=== PATIENT | male | born 1955 | race Caucasian/White ===

== ENCOUNTER 2016-08-06 20:53 | Inpatient (IN) | payer OTHER ==
[~2016-08-06] VITALS: Ht 165.1 cm; Wt 87.5 kg
[2016-08-06] MEDS ORDERED: ONDANSETRON 4 MG INJ IV STA (23:15)
[2016-08-06] MEDS ORDERED: morphine 4 MG/ML VIAL IV STA (23:15)
[2016-08-06] MEDS ORDERED: hydrALAzine 20 MG INJ IV ONE (23:30)
[2016-08-06 23:34] LABS: ADD SCAN DIFF NO
[2016-08-06 23:36] LABS: BASOPHIL # 0.1 10^3/ul (0.0-0.1); BASOPHILS % 0.7 % (0.0-2.0); EOSINOPHILS # 0.8 10^3/ul (0.0-0.5); EOSINOPHILS % 6.9 % (0.0-7.0); HEMATOCRIT 41.1 % (42.0-52.0); HEMOGLOBIN 13.7 g/dl (14.0-18.0); LYMPHOCYTES # 4.5 10^3/ul (0.8-2.9); LYMPHOCYTES % 40.1 % (15.0-51.0); MEAN CORPUSCULAR HEMOGLOBIN 29.3 pg (29.0-33.0); MEAN CORPUSCULAR HGB CONC 33.3 g/dl (32.0-37.0); MEAN PLATELET VOLUME 9.3 fl (7.4-10.4); MONOCYTE # 0.8 10^3/ul (0.3-0.9); MONOCYTES % 7.6 % (0.0-11.0); NEUTROPHIL # 4.9 10^3/ul (1.6-7.5); NEUTROPHILS % 44.3 % (39.0-77.0); PLATELET COUNT 285 10^3/UL (140-415); RED BLOOD COUNT 4.67 10^6/ul (4.70-6.10); RED CELL DISTRIBUTION WIDTH 13.6 % (11.5-14.5); WHITE BLOOD COUNT 11.1 10^3/ul (4.8-10.8)
[2016-08-06 23:54] LABS: INR 0.92; PROTIME 12.4 Sec (12.2-14.2)
[2016-08-06 23:56] LABS: ANION GAP 15 (8-16); BLOOD UREA NITROGEN 15 mg/dl (7-20); CALCIUM 9.4 mg/dl (8.4-10.2); CARBON DIOXIDE 26 mmol/L (21-31); CHLORIDE 105 mmol/L (97-110); CREATININE 0.84 mg/dl (0.61-1.24); GLUCOSE 89 mg/dl (70-220); POTASSIUM 4.7 mmol/L (3.5-5.1); SODIUM 141 mmol/L (135-144)
[2016-08-07 00:14] LABS: TROPONIN-I < 0.012 ng/ml (0.00-0.12)
--- NOTE | 2016-08-07 00:17 | RADRPT ---
PROCEDURE: CT Head without. CLINICAL INDICATION: Headache. TECHNIQUE: The study was performed utilizing a multi-slice, multidetector CT scanner. Direct spira l 1 mm axial sections were obtained through the head without the use of intravenous contrast materia l. 1 or more of the following dose reduction techniques were utilized: Automated exposure control, adjustment of the mA and/or kV according to patient's size, iterative reconstruction technique. Co maxwell and sagittal reformations were obtained. The images were reviewed on a PACS workstation. RADIATION DOSE: CTDIvol: 45.0 mGyDLP: 720.2 mGy-cm COMPARISON: No prior studies are available for comparison. FINDINGS: There is no intracranial hemorrhage, extra-axial fluid collection, mass lesion, midline shift or hyd rocephalus. The ventricles, sulci and cisterns are within normal limits. The white matter is unrem arkable. The ocasio-white matter differentiation is preserved. The basal cisterns are patent. The m idline structures are intact. The orbits, calvarium and extracranial soft tissues are normal in mariano earance. The visualized paranasal sinuses, mastoid air cells and middle ear cavities are normally ae rated. IMPRESSION: 1. No acute intracranial abnormality. No intracranial hemorrhage, extra-axial fluid collection, ma ss lesion or hydrocephalous. RPTAT: HGAS .Kyree Rey MD, Date Time Electronically viewed and signed by .Kyree Rey MD, on 08/07/2016 00:16 .S/
--- NOTE | 2016-08-07 00:36 | RADRPT ---
PROCEDURE: XR Chest. CLINICAL INDICATION: Hypertension. TECHNIQUE: Single frontal chest x-ray. COMPARISON: None. FINDINGS: Heart is enlarged.. There is no congestive heart failure.. No focal infiltrate is seen. There is n o pleural effusion. There is no pneumothorax. The osseous structures are unremarkable. IMPRESSION: Cardiomegaly. No CHF or infiltrate. RPTAT: HMVK .Maurisio Piedra MD, MD Date Time Electronically viewed and signed by .Mauirsio Piedra MD, on 08/07/2016 00:36 .K/
--- NOTE | 2016-08-07 01:09 | ERA ---
ER Documentation Chief Complaint Date/Time DATE: 08/07/16 TIME: 01:08 Chief Complaint HIGH BP >200 X 3 DAYS. NO MEDS TAKEN. +HEADACHE DIZZINESS HPI This 61-year-old male comes in with a headache dizziness and chest pain. He is noted that his blood pressures been over 200 for the past 3 day. He has not been taking any medications. Chest pain is pressure-like, substernal nonexertional positional with no exacerbating or alleviating factors. ROS All systems reviewed and are negative except as per history of present illness. Allergies Allergies: Coded Allergies: No Known Allergy (Unverified , 08/06/16) PMhx/Soc History of Surgery: Yes (appendectomy) Anesthesia Reaction: No Hx Neurological Disorder: No Hx Respiratory Disorders: No Hx Cardiac Disorders: Yes (htn) Hx Psychiatric Problems: No Hx Miscellaneous Medical Probl: No Hx Alcohol Use: Yes Hx Substance Use: No Hx Tobacco Use: Yes Smoking Status: Former smoker Physical Exam Vitals Vital Signs Date Time Temp Pulse Resp B/P Pulse Ox O2 Delivery O2 Flow Rate FiO2 08/07/16 00:42 89 14 173/85 99 Room Air 08/07/16 00:15 99 20 190/112 99 Room Air 08/07/16 00:02 93 16 173/93 98 Room Air 08/06/16 23:13 99.0 87 18 218/124 99 Room Air 08/06/16 21:06 99.1 91 18 199/117 99 Physical Exam Const: [] Head: Atraumatic Eyes: Normal Conjunctiva ENT: Normal External Ears, Nose and Mouth. Neck: Full range of motion..~ No meningismus. Resp: Clear to auscultation bilaterally Cardio: Regular rate and rhythm, no murmurs Abd: Soft, non tender, non distended. Normal bowel sounds Skin: No petechiae or rashes Back: No midline or flank tenderness Ext: No cyanosis, or edema Neur: Awake and alert Psych: Normal Mood and Affect Result Diagram: 08/06/168 08/06/168 Results 24 hrs Laboratory Tests Test 08/06/16 23:18 White Blood Count 11.110^3/ul Red Blood Count 4.6710^6/ul Hemoglobin 13.7g/dl Hematocrit 41.1% Mean Corpuscular Volume 88.0fl Mean Corpuscular Hemoglobin 29.3pg Mean Corpuscular Hemoglobin Concent 33.3g/dl Red Cell Distribution Width 13.6% Platelet Count 57759^3/UL Mean Platelet Volume 9.3fl Neutrophils % 44.3% Lymphocytes % 40.1% Monocytes % 7.6% Eosinophils % 6.9% Basophils % 0.7% Nucleated Red Blood Cells % 0.0/100WBC Neutrophils # 4.910^3/ul Lymphocytes # 4.510^3/ul Monocytes # 0.810^3/ul Eosinophils # 0.810^3/ul Basophils # 0.110^3/ul Nucleated Red Blood Cells # 0.010^3/ul Prothrombin Time 12.4Sec Prothrombin Time Ratio 1.0 INR International Normalized Ratio 0.92 Activated Partial Thromboplast Time 27.0Sec Sodium Level 141mmol/L Potassium Level 4.7mmol/L Chloride Level 105mmol/L Carbon Dioxide Level 26mmol/L Anion Gap 15 Blood Urea Nitrogen 15mg/dl Creatinine 0.84mg/dl Glucose Level 89mg/dl Calcium Level 9.4mg/dl Troponin I < 0.012ng/ml Current Medications Medications (Trade) Dose Ordered Sig/Yocasta Route PRN Reason Start Time Stop Time Status Last Admin Dose Admin Ondansetron HCl (Zofran Inj) 4 mg ONCE STAT IV 08/06/16 23:15 08/06/16 23:17 DC 08/06/16 23:24 Morphine Sulfate (morphine) 4 mg ONCE STAT IV 08/06/16 23:15 08/06/16 23:17 DC 08/06/16 23:24 Hydralazine HCl (Apresoline) 20 mg ONCE ONCE IV 08/06/16 23:30 08/06/16 23:31 DC 08/06/16 23:23 Procedures/MDM EKG: Rate/Rhythm: Normal Sinus Rhythm QRS, ST, T-waves: No changes consistent w/ acute ischemia Impression: No evidence of ischemia or arrhythmia Chest X-ray 1V Interpreted by me: Soft Tissue: No acute abnormalities Bones: No acute abnormalities Mediastinum/Cardiac Silhouette/Lungs: No acute abnormalities Medical decision-making: Patient's thoracic symptoms have stabilized while in the department and are stable for outpatient follow up. Exam and work up not consistent w/ ischemia, arrhythmia, PE or dissection. Patient is severely low blood pressures and has evidence of mild endorgan damage. Patient will be admitted. Blood pressures been normalized here. Critical Care: Time: 45 minutes Treatments/Evaluations: Close monitoring and treatment of unstable vital signs, cardiorespiratory, and neurologic status, while maintaining tight balance of fluid, respiratory, and cardiac interventions. Departure Diagnosis: Primary Impression: Hypertensive crisis Condition: Serious JAVIER DURBIN Aug 07, 2016 01:09
[2016-08-07] MEDS ORDERED: ASPI-664 PO (01:10)
[2016-08-07 05:45] VITALS: TEMP 99
[2016-08-07] MEDS ORDERED: PANTOPRAZOLE (EC) 40 MG TAB PO SCH (09:00)
[2016-08-07] MEDS ORDERED: ASPIRIN 81 MG TAB PO SCH (09:00)
--- NOTE | 2016-08-07 10:05 | QN ---
Documentation Comment Observation Note: Time: 4 hours Family Hx: Negative for diabetes Evaluation: Multiple exams showed improving symptoms and no evidence of clinical decompensation. OLEG ARIAS MD Aug 07, 2016 10:05
[2016-08-07 10:33] LABS: CREATINE KINASE 39 IU/L (23-200)
[2016-08-07 10:46] LABS: CK-MB 1.09 ng/ml (0.0-2.4)
[2016-08-07 10:47] LABS: TROPONIN-I < 0.012 ng/ml (0.00-0.12)
[2016-08-07] MEDS ORDERED: MAGNESIUM HYDROXIDE 30ML CUP PO PRN (14:00)
[2016-08-07] MEDS ORDERED: ACETAMINOPHEN 325 MG TAB PO PRN (14:00)
[2016-08-07] MEDS ORDERED: ONDANSETRON 4 MG INJ IV PRN (14:00)
[2016-08-07] MEDS ORDERED: NACL 0.9% 3 ML SYG IV SCH (14:00)
[2016-08-07] MEDS ORDERED: DOCUSATE SODIUM 100 MG CAP PO PRN (14:00)
[2016-08-07 15:15] LABS: CREATINE KINASE 36 IU/L (23-200)
[2016-08-07 15:33] LABS: CK-MB 0.92 ng/ml (0.0-2.4); TROPONIN-I < 0.012 ng/ml (0.00-0.12)
[2016-08-07 17:50] VITALS: Ht 165.1 cm; Wt 87.5 kg
[2016-08-07] MEDS ORDERED: hydrALAzine 20 MG INJ IV PRN (18:00)
[2016-08-07 18:02] VITALS: BP 187/97; PULSE 86; RESP 16
[2016-08-07 18:22] LABS: CHOL/HDL RATIO 4.7 RATIO
[2016-08-07 19:22] VITALS: BP 169/83; PULSE 108
[2016-08-07 20:01] VITALS: BP 166/82; RESP 16
[2016-08-07 20:21] VITALS: PULSE 105
[2016-08-07] MEDS: METOPROLOL 25 MG TAB PO SCH (21:16)
[2016-08-07 21:22] LABS: TROPONIN-I 0.025 ng/ml (0.00-0.12)
[2016-08-07 21:23] LABS: CK-MB 1.16 ng/ml (0.0-2.4)
--- NOTE | 2016-08-07 23:44 | QN ---
Documentation Comment [id number] MEGAN PEDROZA MD Aug 07, 2016 23:44
[2016-08-08] VITALS (13 sets, daily range): BP systolic 140–191; BP diastolic 76–99; PULSE 64–82; RESP 16–20
--- NOTE | 2016-08-08 00:56 | HP ---
DATE OF ADMISSION: 08/07/2016 HISTORY OF PRESENT ILLNESS: Mr. Moss is a 61-year-old male who was seen here in the ER. The patient presented with blood pressure, headache and dizziness and chest pain. Blood pressure recorded as 173/85, 190/102. The patient's WBC 11.1, white count 41.1, sodium 141, potassium 4.7. The patient had received Zofran, Morphine and hydralazine in the ER. The patient's EKG shows , no suspected changes. PAST MEDICAL HISTORY: Positive for hypertension. ALLERGY HISTORY: NEGATIVE. FAMILY HISTORY: Hypertension. SOCIAL HISTORY: Negative at this point. MEDICATION HISTORY: . REVIEW OF SYSTEMS: HEENT: Unremarkable. RESPIRATORY: Unremarkable. CARDIOVASCULAR: No chest pain at the time. Normal. ABDOMEN: Unremarkable. EXTREMITIES: Unremarkable. PHYSICAL EXAMINATION: GENERAL: The patient is obese, overweight male, awake, alert. VITAL SIGNS: Stable. HEAD: Atraumatic, normocephalic. Pupils equal, reactive to light. No pallor or conjunctival icterus. NECK: Supple. LUNGS: Clear. CARDIOVASCULAR: S1, S2 are normal. ABDOMEN: Soft, obese. Bowel sounds positive. No palpable mass. EXTREMITIES: No cyanosis, clubbing, or edema. CENTRAL NERVOUS SYSTEM: The patient is awake, alert, no focal deficit. LABORATORY DATA: BMP within normal limits. WBC , hematocrit 41.1. The patient had a chest x-ray: Cardiomegaly, no CHF. Brain CT scan: No acute intracranial abnormality. IMPRESSION 1. Malignant hypertension, uncontrolled. 2. Rule out ischemic heart disease. 3. Leukocytosis. 4. The patient has anemia. PLAN: Give this patient low salt diet, blood pressure control, oxygen, aspirin , nitroglycerin, 2D echo. Troponin will be sent. Cardiology consultation, Dr. Courtney, has been consulted consultation. Orders were done. Dictated By: MEGAN PEDROZA MD BS/NTS Conf#: [id number] DID#: [id number] MTDD
[2016-08-08] MEDS: PANTOPRAZOLE (EC) 40 MG TAB PO SCH (06:12)
[2016-08-08] MEDS: METOPROLOL 25 MG TAB PO SCH ×2 (08:47→21:26)
[2016-08-08] MEDS: ASPIRIN (EC) 81 MG TAB PO SCH (08:47)
[2016-08-08] MEDS ORDERED: LOSARTAN 50 MG TAB NGT SCH (09:00)
[2016-08-08] MEDS ORDERED: NITROGLYCERIN (SL) 0.4 MG TAB SL PRN (15:30)
--- NOTE | 2016-08-08 15:58 | RADRPT ---
Echocardiogram Report Patient Name: CAS HUITRON Gender: Male Date: 1955 Study Date: 07-Aug-2016 [employer] Analyst: [facility] Location: [facility] Ref. Physician: MEGAN PEDROZA Quality: Adequate Procedures: Transthoracic echocardiogram with complete 2D, M-Mode, and doppler examination. Indications: Hypertension. 2D/M Mode Doppler Measurement Value Normal Ranges Measurement Value Normal Ranges LVIDd 2D 4.3 3.5 - 5.6 cm AV Peak Joey 1.4 m/sec LVIDs 2D 3.2 2.1 - 4.1 cm AV Peak PG 8.0 mmHg LVPWd 2D 1.3 0.6 - 1.1 cm LVOT Peak Joey 1.0 m/sec IVSd 2D 1.3 0.6 - 1.1 cm LVOT Peak PG 4.3 mmHg AoR Diam 2D 2.8 2.0 - 3.7 cm MV E Peak Joey 0.7 m/sec EDV 2D 84.0 cm3 MV A Peak Joey 0.8 m/sec ESV 2D 32.3 cm3 MV E/A 0.8 LA Dimen 2D 3.3 2.3 - 4.0 cm MV Decel Time 184 msec MV Decel [place] 4 MV E/A 0.8 Findings Left Ventricle: Normal left ventricular systolic function. Normal left ventricular cavity size. Mild concentric left ventricular hypertrophy. Ejection fraction is visually estimated at 65 %. Tissue Doppler/Mitral Doppler indices are consistent with impaired relaxation (Stage I diastolic dysfunction). Right Ventricle: Normal right ventricular size. Normal right ventricular systolic function. Left Atrium: The left atrium is normal in size. Right Atrium: The right atrium is normal in size. Mitral Valve: Mild mitral leaflet calcification. Trace mitral regurgitation. Aortic Valve: No significant aortic stenosis or insufficiency. Aortic valve not well visualized. Tricuspid Valve: Normal appearance and function of the tricuspid valve with trace physiologic regurgitation. Unable to obtain RVSP due to minimal presence of tricuspid regurgitation. Pericardium: Thickened pericardium. Aorta: Normal aortic root. IVC: Normal size and normal respiratory collapse consistent with normal right atrial pressure. Conclusions 1.Normal left ventricular systolic function. Normal left ventricular cavity size. Mild concentric left ventricular hypertrophy. Ejection fraction is visually estimated at 65 %. Tissue Doppler/Mitral Doppler indices are consistent with impaired relaxation (Stage I diastolic dysfunction). 2.Mild mitral leaflet calcification. Trace mitral regurgitation. 3.Normal appearance and function of the tricuspid valve with trace physiologic regurgitation. Unable to obtain RVSP due to minimal presence of tricuspid regurgitation. Electronically Signed By: Hernán Courtney 08-Aug-2016 15:57:17 -0700 Patient Name: CAS HUITRON Study Date: 07-Aug-2016 [id number]
--- NOTE | 2016-08-08 16:25 | CONS ---
DATE OF ADMISSION: 08/07/2016 DATE OF CONSULTATION: 08/08/2016 TYPE OF CONSULTATION: Cardiology. REASON FOR CONSULTATION: Hypertensive urgency/emergency. REQUESTING PHYSICIAN: Guy Pedroza MD HISTORY OF PRESENT ILLNESS: Mr. Moss is a 61-year-old male with a history of hypertension diffic ult to control, who presented with complaints of headache, dizziness and chest pain per chart biopsy , although the patient denies chest pain to me. Initially upon arrival, temperature 99.1, blood pre ssure markedly elevated at 199/117, pulse 91, respiratory rate 18, saturating 99%. The patient's la bs revealed a white count of 11.1, hemoglobin 13.7, platelet count 285. Sodium 141, potassium 4.7, creatinine 0.8, BUN 15. Troponin negative. INR of 0.92. The patient underwent a chest x-ray revea ling cardiomegaly with no CHF or infiltrate. The patient had a head CT revealing no acute intracran ial abnormality, no intracranial hemorrhage fluid collection, mass lesion. The patient subsequently has been admitted to the floor and since admit to the floor, has had slow down trending of his hype rtension on oral antihypertensives. The patient has had a troponin checked multiple times all retur sabas negative greater than 3, and has an LDL of 99 and HDL of 38. PAST MEDICAL HISTORY: As above in HPI. MEDICATIONS CURRENTLY IN HOSPITAL: 1. Aspirin 81 mg daily. 2. Cozaar 50 mg daily. 3. Protonix 40 mg daily. 4. Metoprolol 25 mg p.o. b.i.d. 5. Zofran p.r.n. 6. Tylenol p.r.n. 7. Colace p.r.n. 8. Clonidine p.r.n. ALLERGIES: NO KNOWN DRUG ALLERGIES. SOCIAL HISTORY: Prior tobacco, quit x2 weeks. Social ETOH. No illicit drug use. FAMILY HISTORY: No history of sudden cardiac or early CAD. REVIEW OF SYSTEMS: As above in HPI. CONSTITUTIONAL: No fevers, chills. PULMONARY: No current shortness of breath. CARDIOVASCULAR: No current chest pain. GASTROINTESTINAL: No vomiting. GENITOURINARY: No hematuria. MUSCULOSKELETAL: Degenerative joint disease. PSYCHIATRIC: No documented psych history. NEUROLOGIC: Dizziness. PHYSICAL EXAMINATION: VITAL SIGNS: Temperature 98.3, blood pressure most recently 147/86, pulse 70, respiratory rate 20, saturating 98%. GENERAL: The patient is alert, awake, in no acute distress. NECK: JVP approximately 8 to 9 cm of water. CHEST: Fair air movement throughout. HEART: Regular rate and rhythm, normal S1, S2, I/ systolic murmur, nondisplaced PMI. ABDOMEN: Positive bowel sounds, soft. EXTREMITIES: No edema, 1+ pulses bilaterally posterior tibial. LABORATORY DATA: Most recent from today, troponin negative greater than 3. IMAGING STUDIES: As above in HPI. No further imaging studies for my review at this time. ELECTROCARDIOGRAM: Revealing normal sinus rhythm, rate 84, normal axis, normal intervals, with inco mplete right bundle branch block. IMPRESSION: 1. Hypertension urgency/emergency, slowly improving on oral antihypertensives. 2. Chest pain, denies currently. Per chart biopsy, presented with chest pain. 3. Dizziness, headache in the setting of hypertensive urgency/emergency, improving. 4. Anemia. 5. Dyslipidemia with decreased HDL. RECOMMENDATIONS 1. At this time, would maintain the patient on telemetry monitoring to follow rhythm and rate close ly. 2. We will follow the patient's 2D echo done for assessment of ejection fraction, wall motion and a ny major valve abnormalities. 3. Continue the patient's current beta daniele and losartan with up titration as necessary to impro ve overall systolic blood pressure control. 4. Continue the patient's aspirin for prophylaxis against cardiovascular events and we will conside r stress testing in this patient who presents with complaints of additional substernal chest pain in the setting of hypertensive urgency/emergency. Thank you for allowing me to take part in the care of this patient. I will continue to follow along very closely with you. Further recommendations will be made as the patient progresses through his inpatient hospital clinical course. Dictated By: REBEKAH MCGREGOR/KAROLINA Conf#: [id number] DID#: [id number] CC: GUY PEDROZA MD;*End*
--- NOTE | 2016-08-08 18:32 | PN ---
Date/Time of Note Date/Time of Note DATE: 08/08/16 TIME: 18:31 Assessment/Plan VTE Prophylaxis VTE Prophylaxis Intervention: other Lines/Catheters IV [facility] Saline Lock Urinary Cath still in place: No Assessment/Plan Chief Complaint/Hosp Course IMPRESSION 1. Malignant hypertension, uncontrolled. 2. Rule out ischemic heart disease. 3. Leukocytosis. 4. The patient has anemia. plan per cardio Problems: Subjective 24 Hr Interval Summary ENT: no complaints Respiratory: no complaints Cardiovascular: no complaints Exam/Review of Systems Vital Signs Vitals Vital Signs Date Time Temp Pulse Resp B/P Pulse Ox O2 Delivery O2 Flow Rate FiO2 08/08/16 16:12 74 08/08/16 15:49 168/89 08/08/16 15:30 98.4 20 98 08/07/16 18:02 Room Air Intake and Output 08/07/16 08/07/16 08/08/16 15:00 23:00 07:00 Intake Total 480 ml 500 ml Balance 480 ml 500 ml Exam Neck: supple Respiratory: clear to auscultation Cardiovascular: regular rate and rhythm Gastrointestinal: soft Results Result Diagram: 08/06/16 2318 08/06/16 2318 Results 24 hrs Laboratory Tests Test 08/07/16 20:35 08/08/16 00:20 Creatine Kinase 73 Creatine Kinase Index 1.6 Creatinine Kinase MB (Mass) 1.16 Troponin I 0.025 0.049 Medications Medications Current Medications Clonidine (Catapres) 0.1 mg Q6H PRN PO ELEVATED BLOOD PRESSURE Last administered on 08/07/16 18:16; Admin Dose 0.1 MG; Start 08/07/16 at 09:00 Aspirin (Halfprin) 81 mg DAILY PO Last administered on 08/08/16 08:47; Admin Dose 81 MG; Start 08/08/16 at 09:00 Ondansetron HCl (Zofran Inj) 4 mg Q6H PRN IV NAUSEA AND/OR VOMITING; Start 08/07 at 14:00 Acetaminophen (Tylenol Tab) 650 mg Q6H PRN PO PAIN LEVEL 1-3 OR FEVER; Start at 14:00 Docusate Sodium (Colace) 100 mg Q12H PRN PO CONSTIPATION; Start 08/07/16 at 14: 00 Magnesium Hydroxide (Milk Of Mag) 30 ml DAILY PRN PO CONSTIPATION; Start at 14:00 Pantoprazole (Protonix Tab) 40 mg DAILY@06 PO Last administered on 08/08/16 06: 12; Admin Dose 40 MG; Start 08/08/16 at 06:00 Metoprolol Tartrate (Lopressor) 25 mg BID PO Last administered on 08/08/16 08: 47; Admin Dose 25 MG; Start 08/07/16 at 21:00 Hydralazine HCl (Apresoline) 10 mg Q6H PRN IV SBP>170 Last administered on 18:17; Admin Dose 10 MG; Start 08/07/16 at 18:00 Losartan Potassium (Cozaar) 50 mg BID NGT ; Start 08/08/16 at 21:00 Nitroglycerin (Nitroglycerin (Sl Tab) 0.4 Mg) 1 tab Q5M PRN SL ANGINA; Start at 15:30 MEGAN PEDROZA MD Aug 08, 2016 18:32
[2016-08-08] MEDS: LOSARTAN 50 MG TAB NGT SCH (21:26)
[2016-08-09] VITALS (14 sets, daily range): BP systolic 132–172; BP diastolic 73–132; PULSE 79–96; RESP 16–18
[2016-08-09] MEDS: PANTOPRAZOLE (EC) 40 MG TAB PO SCH (05:50)
[2016-08-09 07:46] LABS: ADD SCAN DIFF NO
[2016-08-09 07:54] LABS: BASOPHIL # 0.1 10^3/ul (0.0-0.1); BASOPHILS % 0.4 % (0.0-2.0); EOSINOPHILS # 0.4 10^3/ul (0.0-0.5); EOSINOPHILS % 3.3 % (0.0-7.0); HEMATOCRIT 39.9 % (42.0-52.0); HEMOGLOBIN 13.4 g/dl (14.0-18.0); LYMPHOCYTES # 3.2 10^3/ul (0.8-2.9); LYMPHOCYTES % 23.7 % (15.0-51.0); MEAN CORPUSCULAR HEMOGLOBIN 29.6 pg (29.0-33.0); MEAN CORPUSCULAR HGB CONC 33.6 g/dl (32.0-37.0); MEAN CORPUSCULAR VOLUME 88.3 fl (82.0-101.0); MEAN PLATELET VOLUME 9.9 fl (7.4-10.4); MONOCYTES % 7.8 % (0.0-11.0); NEUTROPHIL # 8.6 10^3/ul (1.6-7.5); NEUTROPHILS % 64.4 % (39.0-77.0); PLATELET COUNT 280 10^3/UL (140-415); RED BLOOD COUNT 4.52 10^6/ul (4.70-6.10); RED CELL DISTRIBUTION WIDTH 13.9 % (11.5-14.5); WHITE BLOOD COUNT 13.3 10^3/ul (4.8-10.8)
[2016-08-09] MEDS: LOSARTAN 50 MG TAB NGT SCH ×2 (08:13→20:34)
[2016-08-09] MEDS: ASPIRIN (EC) 81 MG TAB PO SCH (08:14)
[2016-08-09] MEDS: METOPROLOL 25 MG TAB PO SCH ×2 (08:15→20:33)
[2016-08-09 08:35] LABS: ALBUMIN 4.6 g/dl (3.3-4.9); ALBUMIN/GLOBULIN RATIO 1.43; BILIRUBIN,INDIRECT 0.4 mg/dl (0-1.1); BILIRUBIN,TOTAL 0.4 mg/dl (0.2-1.3); CALCIUM 9.2 mg/dl (8.4-10.2); CREATININE 0.83 mg/dl (0.61-1.24); POTASSIUM 4.1 mmol/L (3.5-5.1); TOTAL PROTEIN 7.8 g/dl (6.1-8.1)
--- NOTE | 2016-08-09 09:50 | RADRPT ---
Vent Rate: 76 bpm RR Interval: 0 msec WA Interval: 152 msec QRS Duration: 84 msec QT Interval: 406 msec QTC Interval: 456 msec P-R-T [place]: 53 - 35 - 72 degrees Normal sinus rhythm Normal ECG No previous tracing available for comparison Electronically Signed By: Matthieu Barrios [id number]
[2016-08-09] MEDS ORDERED: REGADENOSON 0.4 MG/5 ML SYG ONE (10:16)
--- NOTE | 2016-08-09 11:05 | CONS ---
Date/Time of Note Date/Time of Note DATE: 08/09/16 TIME: 11:00 Assessment/Plan Assessment/Plan Chief Complaint/Hosp Course IMPRESSION: 1. Hypertension urgency/emergency, slowly improving on oral antihypertensives.- elevated this am 2. Chest pain, denies currently. Per chart biopsy, presented with chest pain.- negative trop x 3/NL EF by echo 3. Dizziness, headache in the setting of hypertensive urgency/emergency, improving. 4. Anemia. 5. Dyslipidemia with decreased HDL. Recc: -Tele -serial ecg's Continue BB/hydralazine/losartan with further uptitration as necessary -Lexiscan stress test today Problems: Consultation Date/Type/Reason Admit Date/Time Aug 07, 2016 at 01:08 Initial Consult Date 08/09/2016 Type of Consultation: Cardiology Reason for Consultation chest pain Referring Provider: MEGAN PEDROZA MD Exam/Review of Systems Vital Signs Vitals Vital Signs Date Time Temp Pulse Resp B/P Pulse Ox O2 Delivery O2 Flow Rate FiO2 08/09/16 08:11 83 165/84 08/09/16 04:10 98.5 16 100 08/07/16 18:02 Room Air Intake and Output 08/08/16 08/08/16 08/09/16 15:00 23:00 07:00 Intake Total 1300 ml 500 ml Balance 1300 ml 500 ml Exam Review of Systems: CONSTITUTIONAL: No fevers, chills. PULMONARY: cough CARDIOVASCULAR: No chest pain/palpitations GASTROINTESTINAL: No nausea/vomiting. GENITOURINARY: No hematuria/dysuria. MUSCULOSKELETAL: No myagias/arthalgias. PSYCHIATRIC: The patient denies depression. NEUROLOGIC: No weakness Constitutional: alert Psych: no complaints Head: normocephalic Eyes: nl conjunctiva ENMT: mucosa pink and moist Neck: jvd (8 cm wter), supple Respiratory: clear to auscultation Cardiovascular: regular rate and rhythm Gastrointestinal: non-tender, soft Musculoskeletal: muscle tone (normal) Extremities: edema (none) Neurological: other (No focal deficits) Results Result Diagram: 08/09/16 0645 08/09/16 0645 Results 24 hrs Laboratory Tests Test 08/09/16 06:45 White Blood Count 13.3 H Red Blood Count 4.52 L Hemoglobin 13.4 L Hematocrit 39.9 L Mean Corpuscular Volume 88.3 Mean Corpuscular Hemoglobin 29.6 Mean Corpuscular Hemoglobin Concent 33.6 Red Cell Distribution Width 13.9 Platelet Count 280 Mean Platelet Volume 9.9 Neutrophils % 64.4 Lymphocytes % 23.7 Monocytes % 7.8 Eosinophils % 3.3 Basophils % 0.4 Nucleated Red Blood Cells % 0.0 Neutrophils # 8.6 H Lymphocytes # 3.2 H Monocytes # 1.0 H Eosinophils # 0.4 Basophils # 0.1 Nucleated Red Blood Cells # 0.0 Sodium Level 140 Potassium Level 4.1 Chloride Level 105 Carbon Dioxide Level 26 Anion Gap 13 Blood Urea Nitrogen 17 Creatinine 0.83 Glucose Level 97 Calcium Level 9.2 Total Bilirubin 0.4 Direct Bilirubin 0.00 Indirect Bilirubin 0.4 Aspartate Amino Transf (AST/SGOT) 25 Alanine Aminotransferase (ALT/SGPT) 35 Alkaline Phosphatase 92 Total Protein 7.8 Albumin 4.6 Globulin 3.20 Albumin/Globulin Ratio 1.43 Medications Medications Current Medications Clonidine (Catapres) 0.1 mg Q6H PRN PO ELEVATED BLOOD PRESSURE Last administered on 08/09/16 06:10; Admin Dose 0.1 MG; Start 08/07/16 at 09:00 Aspirin (Halfprin) 81 mg DAILY PO Last administered on 08/09/16 08:14; Admin Dose 81 MG; Start 08/08/16 at 09:00 Ondansetron HCl (Zofran Inj) 4 mg Q6H PRN IV NAUSEA AND/OR VOMITING; Start 08/07 at 14:00 Acetaminophen (Tylenol Tab) 650 mg Q6H PRN PO PAIN LEVEL 1-3 OR FEVER; Start at 14:00 Docusate Sodium (Colace) 100 mg Q12H PRN PO CONSTIPATION; Start 08/07/16 at 14: 00 Magnesium Hydroxide (Milk Of Mag) 30 ml DAILY PRN PO CONSTIPATION; Start at 14:00 Pantoprazole (Protonix Tab) 40 mg DAILY@06 PO Last administered on 08/09/16 05: 50; Admin Dose 40 MG; Start 08/08/16 at 06:00 Metoprolol Tartrate (Lopressor) 25 mg BID PO Last administered on 08/09/16 08: 15; Admin Dose 25 MG; Start 08/07/16 at 21:00 Hydralazine HCl (Apresoline) 10 mg Q6H PRN IV SBP>170 Last administered on 18:17; Admin Dose 10 MG; Start 08/07/16 at 18:00 Losartan Potassium (Cozaar) 50 mg BID NGT Last administered on 08/09/16 08:13; Admin Dose 50 MG; Start 08/08/16 at 21:00 Nitroglycerin (Nitroglycerin (Sl Tab) 0.4 Mg) 1 tab Q5M PRN SL ANGINA; Start at 15:30 Hydralazine HCl (Apresoline) 50 mg TID NGT Last administered on 08/09/16 08:12 ; Admin Dose 50 MG; Start 08/08/16 at 21:00 REBEKAH GARCIA Aug 09, 2016 11:05
--- NOTE | 2016-08-09 11:20 | CARRPT ---
DATE OF PROCEDURE: 08/09/2016 PROCEDURE: Lexiscan Cardiolite stress test, electrocardiogram portion. REASON FOR STRESS TESTING: Chest pain, assess for ischemia. BASELINE VITAL SIGNS AND ELECTROCARDIOGRAM: Pulse 69, blood pressure 173/93. Electrocardiogram rev eals normal sinus rhythm, rate of 69, normal axis, normal intervals, with isolated T-wave inversion in lead aVL. PROCEDURE: The patient underwent standard Lexiscan infusion protocol over 10 seconds followed by ra diolabeled tracer. The patient's test was stopped due to completion of protocol. Maximal achieved blood pressure during the test 155/80. Maximum heart rate during the test 94. ELECTROCARDIOGRAM FINDINGS: The patient did not develop any new Lexiscan-induced ST or T-wave sandoval es from baseline abnormalities. No documented PVCs. SYMPTOMS: The patient had no complaints of chest pain or shortness of breath during stress testing. IMPRESSION: 1. No Lexiscan-induced ST or T-wave changes from baseline abnormalities or diagnostic cardiac ische satish. 2. No complaints of chest pain or shortness of breath during stress testing. 3. No documented premature ventricular contractions during stress testing. 4. Report of nuclear images to follow in separate dictation. Dictated By: REBEKAH MCGREGOR/KAROLINA Conf#: [id number] DID#: [id number]
--- NOTE | 2016-08-09 13:05 | RADRPT ---
PROCEDURE: Lexiscan myocardial perfusion study CLINICAL INDICATION: 61 -year-old patient complaining of chest pain. TECHNIQUE: Lexiscan 0.4 mg intravenously separate acquisition gated myocardial perfusion SPECT usi ng Tc 99m Myoview 32.4 mCi intravenously at stress and Tc-99m Myoview, 10.7 mCi intravenously at res t was performed using the rest/stress sequence. Poststress Myoview SPECT images were obtained in th e supine position. COMPARISON: No prior studies. FINDINGS: Perfusion images reveal a small size mild in degree predominantly nonreversible perfusion abnormalit y in the inferior wall. Lexiscan post stress gated SPECT images demonstrate no wall motion abnormalities. IMPRESSION: 1. The type and distribution of the scintigraphic abnormalities are most consistent with a small pre dominantly nonreversible perfusion defect in the inferior wall. 2. No wall motion abnormalities. 3. The left ventricle ejection fraction at stress is 54%. A call report was made to Dr. Courtney at 01:04 p.m. on August 09, 2016. RPTAT: HH .Pura Severino MD, Date Time Electronically viewed and signed by .Pura Severino MD, on 08/09/2016 13:05 .L/
--- NOTE | 2016-08-09 18:04 | PN ---
Date/Time of Note Date/Time of Note DATE: 08/09/16 TIME: 18:03 Assessment/Plan VTE Prophylaxis VTE Prophylaxis Intervention: other Lines/Catheters IV [facility]from [facility] Saline [facility] Urinary Cath still in place: No Assessment/Plan Chief Complaint/Hosp Course IMPRESSION 1. Malignant hypertension, uncontrolled.better 2. Rule out ischemic heart disease. 3. Leukocytosis. 4. The patient has anemia. plan per cardio ck lexiscan Problems: Subjective 24 Hr Interval Summary Subjective hx not possible: other (s/p pati scan) Respiratory: no complaints Cardiovascular: no complaints Exam/Review of Systems Vital Signs Vitals Vital Signs Date Time Temp Pulse Resp B/P Pulse Ox O2 Delivery O2 Flow Rate FiO2 08/09/16 17:13 87 140/80 08/09/16 16:14 98.4 16 96 08/07/16 18:02 Room Air Intake and Output 08/08/16 08/08/16 08/09/16 15:00 23:00 07:00 Intake Total 1300 ml 500 ml Balance 1300 ml 500 ml Exam Neck: supple Respiratory: clear to auscultation Cardiovascular: regular rate and rhythm Gastrointestinal: soft Results Result Diagram: 08/09/16 0645 08/09/16 0645 Results 24 hrs Laboratory Tests Test 08/09/16 06:45 White Blood Count 13.3 H Red Blood Count 4.52 L Hemoglobin 13.4 L Hematocrit 39.9 L Mean Corpuscular Volume 88.3 Mean Corpuscular Hemoglobin 29.6 Mean Corpuscular Hemoglobin Concent 33.6 Red Cell Distribution Width 13.9 Platelet Count 280 Mean Platelet Volume 9.9 Neutrophils % 64.4 Lymphocytes % 23.7 Monocytes % 7.8 Eosinophils % 3.3 Basophils % 0.4 Nucleated Red Blood Cells % 0.0 Neutrophils # 8.6 H Lymphocytes # 3.2 H Monocytes # 1.0 H Eosinophils # 0.4 Basophils # 0.1 Nucleated Red Blood Cells # 0.0 Sodium Level 140 Potassium Level 4.1 Chloride Level 105 Carbon Dioxide Level 26 Anion Gap 13 Blood Urea Nitrogen 17 Creatinine 0.83 Glucose Level 97 Calcium Level 9.2 Total Bilirubin 0.4 Direct Bilirubin 0.00 Indirect Bilirubin 0.4 Aspartate Amino Transf (AST/SGOT) 25 Alanine Aminotransferase (ALT/SGPT) 35 Alkaline Phosphatase 92 Total Protein 7.8 Albumin 4.6 Globulin 3.20 Albumin/Globulin Ratio 1.43 Medications Medications Current Medications Clonidine (Catapres) 0.1 mg Q6H PRN PO ELEVATED BLOOD PRESSURE Last administered on 08/09/16 06:10; Admin Dose 0.1 MG; Start 08/07/16 at 09:00 Aspirin (Halfprin) 81 mg DAILY PO Last administered on 08/09/16 08:14; Admin Dose 81 MG; Start 08/08/16 at 09:00 Ondansetron HCl (Zofran Inj) 4 mg Q6H PRN IV NAUSEA AND/OR VOMITING; Start 08/07 at 14:00 Acetaminophen (Tylenol Tab) 650 mg Q6H PRN PO PAIN LEVEL 1-3 OR FEVER; Start at 14:00 Docusate Sodium (Colace) 100 mg Q12H PRN PO CONSTIPATION; Start 08/07/16 at 14: 00 Magnesium Hydroxide (Milk Of Mag) 30 ml DAILY PRN PO CONSTIPATION; Start at 14:00 Pantoprazole (Protonix Tab) 40 mg DAILY@06 PO Last administered on 08/09/16 05: 50; Admin Dose 40 MG; Start 08/08/16 at 06:00 Metoprolol Tartrate (Lopressor) 25 mg BID PO Last administered on 08/09/16 08: 15; Admin Dose 25 MG; Start 08/07/16 at 21:00 Hydralazine HCl (Apresoline) 10 mg Q6H PRN IV SBP>170 Last administered on 18:17; Admin Dose 10 MG; Start 08/07/16 at 18:00 Losartan Potassium (Cozaar) 50 mg BID NGT Last administered on 08/09/16 08:13; Admin Dose 50 MG; Start 08/08/16 at 21:00 Nitroglycerin (Nitroglycerin (Sl Tab) 0.4 Mg) 1 tab Q5M PRN SL ANGINA; Start at 15:30 Hydralazine HCl (Apresoline) 50 mg TID NGT Last administered on 08/09/16 14:38 ; Admin Dose 50 MG; Start 08/08/16 at 21:00 MEGAN PEDROZA MD Aug 09, 2016 18:04
[2016-08-10] VITALS (8 sets, daily range): BP systolic 134–160; BP diastolic 78–87; PULSE 73–82; RESP 17–18
[2016-08-10] MEDS: PANTOPRAZOLE (EC) 40 MG TAB PO SCH (06:06)
[2016-08-10] MEDS: LOSARTAN 50 MG TAB NGT SCH (08:48)
[2016-08-10] MEDS: ASPIRIN (EC) 81 MG TAB PO SCH (08:48)
[2016-08-10] MEDS: METOPROLOL 25 MG TAB PO SCH (08:49)
--- NOTE | 2016-08-10 13:39 | CONS ---
Date/Time of Note Date/Time of Note DATE: 08/10/16 TIME: 13:37 Assessment/Plan Assessment/Plan Chief Complaint/Hosp Course IMPRESSION: 1. Hypertension urgency/emergency, slowly improving on oral antihypertensives.- overall improved 2. Chest pain, denies currently. Per chart biopsy, presented with chest pain.- negative trop x 3/NL EF by echo. Lexiscan 08/09 with scar an no ischemia EF NL 3. Dizziness, headache in the setting of hypertensive urgency/emergency, improving. 4. Anemia. 5. Dyslipidemia with decreased HDL. Recc: -Tele -serial ecg's Continue BB/hydralazine/losartan with slight uptitration to hydralazine to assure good BP control Problems: Consultation Date/Type/Reason Admit Date/Time Aug 07, 2016 at 01:08 Initial Consult Date 08/09/2016 Type of Consultation: Cardiology Reason for Consultation CHest pain/HTN Referring Provider: MEGAN PEDROZA MD Exam/Review of Systems Vital Signs Vitals Vital Signs Date Time Temp Pulse Resp B/P Pulse Ox O2 Delivery O2 Flow Rate FiO2 08/10/16 12:10 73 08/10/16 11:52 97.8 18 147/82 98 08/07/16 18:02 Room Air Intake and Output 08/09/16 08/09/16 08/10/16 15:00 23:00 07:00 Intake Total 720 ml 900 ml Balance 720 ml 900 ml Exam Review of Systems: CONSTITUTIONAL: No fevers, chills. PULMONARY: No sob CARDIOVASCULAR: No chest pain/palpitations GASTROINTESTINAL: No nausea/vomiting. GENITOURINARY: No hematuria/dysuria. MUSCULOSKELETAL: No myagias/arthalgias. PSYCHIATRIC: The patient denies depression. NEUROLOGIC: No weakness Constitutional: alert Psych: no complaints Head: normocephalic ENMT: mucosa pink and moist Neck: jvd (9 cm water), supple Respiratory: clear to auscultation Cardiovascular: regular rate and rhythm Gastrointestinal: non-tender, soft Musculoskeletal: muscle tone (normal) Extremities: edema (none) Neurological: other (NO focal deficits) Results Result Diagram: 08/09/16 0645 08/09/16 0645 Medications Medications Current Medications Clonidine (Catapres) 0.1 mg Q6H PRN PO ELEVATED BLOOD PRESSURE Last administered on 08/09/16t 06:10; Admin Dose 0.1 MG; Start 08/07/16 at 09:00 Aspirin (Halfprin) 81 mg DAILY PO Last administered on 08/10/16 08:48; Admin Dose 81 MG; Start 08/08/16 at 09:00 Ondansetron HCl (Zofran Inj) 4 mg Q6H PRN IV NAUSEA AND/OR VOMITING; Start 08/07 at 14:00 Acetaminophen (Tylenol Tab) 650 mg Q6H PRN PO PAIN LEVEL 1-3 OR FEVER; Start at 14:00 Docusate Sodium (Colace) 100 mg Q12H PRN PO CONSTIPATION Last administered on 08:48; Admin Dose 100 MG; Start 08/07/16 at 14:00 Magnesium Hydroxide (Milk Of Mag) 30 ml DAILY PRN PO CONSTIPATION; Start at 14:00 Pantoprazole (Protonix Tab) 40 mg DAILY@06 PO Last administered on 08/10/16 06: 06; Admin Dose 40 MG; Start 08/08/16 at 06:00 Metoprolol Tartrate (Lopressor) 25 mg BID PO Last administered on 08/10/16 08: 49; Admin Dose 25 MG; Start 08/07/16 at 21:00 Hydralazine HCl (Apresoline) 10 mg Q6H PRN IV SBP>170 Last administered on 18:17; Admin Dose 10 MG; Start 08/07/16 at 18:00 Losartan Potassium (Cozaar) 50 mg BID NGT Last administered on 08/10/16 08:48; Admin Dose 50 MG; Start 08/08/16 at 21:00 Nitroglycerin (Nitroglycerin (Sl Tab) 0.4 Mg) 1 tab Q5M PRN SL ANGINA; Start at 15:30 Hydralazine HCl (Apresoline) 50 mg TID NGT Last administered on 08/10/16 12:12 ; Admin Dose 50 MG; Start 08/08/16 at 21:00 REBEKAH GARCIA Aug 10, 2016 13:39
--- NOTE | 2016-08-10 15:06 | PDOCDIS ---
Discharge Instructions DIAGNOSIS Discharge Diagnosis: Cardiomegaly, uncontrolled hypertension CONDITION Patient Condition: Good HOME CARE INSTRUCTIONS: Diet Instructions: 2gm NaSpecial Diet: CARDIAC ACTIVITY: Activity Restrictions: Slowly Increase Activity FOLLOW UP/APPOINTMENTS Appointments PCP 1 week SCHOOL/WORK RELEASE May return to School/Work with: With Restrictions (2 weeks off) OBED BALDERRAMA Aug 10, 2016 15:06
[2016-08-10] MEDS ORDERED: PANT40TA4 PO (15:08)
[2016-08-10] MEDS ORDERED: METO-448 PO (15:08)
[2016-08-10] MEDS ORDERED: LOSA50TA2 NGT (15:08)
== END 2016-08-10 16:18 | disposition home or self-care (01) | DRG 305 ==
LOC: E/R 20:53 → MS4 08-07 01:08
PROVIDERS: ADMIT Internal Medicine Nephrology; ATTEND Internal Medicine Nephrology
DX: I16.0 Hypertensive urgency (principal); E78.5 Hyperlipidemia, unspecified; D72.829 Elevated white blood cell count, unspecified; D64.9 Anemia, unspecified; R07.9 Chest pain, unspecified
CPT/HCPCS: 36415; 70450; 71010; 78452; 80048; 80053; 80061; 82550; 82553; 84484; 85025; 85610; 85730; 93005; 93017; 93306; 96374; 96375; A9500; A9505; J0360; J2270; J2405; J2785

== ENCOUNTER 2017-04-02 17:38 | Emergency (ER) | END 2017-04-02 22:00 | disposition home or self-care (01) ==

== ENCOUNTER 2018-03-08 08:03 | Emergency (ER) | payer OTHER ==
[~2018-03-08] VITALS: Ht 162.6 cm; Wt 70.9 kg
[~2018-03-08 08:03] MED LIST: ASPI-817 PO; CEPH-443 PO; IBUP-1561 PO; LOSA50TA2 NGT; METO-448 PO; PANT40TA4 PO; SULF1TAB31 PO
[2018-03-08 08:04] VITALS: BP 129/73; PULSE 78; RESP 16; Ht 162.6 cm; Wt 70.9 kg
--- NOTE | 2018-03-08 10:05 | ERD ---
ER Documentation Chief Complaint Chief Complaint BLURRY VISION. HX OF DM. STATES HOME GLUCOMETER IS BROKEN HPI This is a 63-year-old pleasant type 2 insulin-dependent diabetic who presents for evaluation of chronic blurry vision. Patient has a history of diabetic retinopathy, he has not spent any acute changes, however he did wish to be seen by as he lost access to primary care and he has been taking his 's metformin as he has run out. He takes metformin 1000 mg twice daily. He denies chest pain, shortness of breath, he denies any other symptoms. No eye trauma or eye pain. ROS All systems reviewed and are negative except as per history of present illness. Medications Home Meds Active Scripts Metformin* (Glucophage*) 1,000 Mg Tablet, 1000 MG PO BID, #60 TAB 1 Refill Prov:JOSE ALFREDO HEAD MD 03/08/18 Ibuprofen* (Motrin*) 400 Mg Tab, 400 MG PO Q8 PRN for PAIN AND OR ELEVATED TEMP for 5 Days, #15 TAB Prov:MARLEE BONNER MD 04/02/17 Cephalexin* (Keflex*) 500 Mg Capsule, 500 MG PO QID for 10 Days, #20 CAP Prov:MARLEE BONNER MD 04/02/17 Sulfamethoxazole/Trimethoprim* (Bactrim Ds* Tablet) 1 Each Tablet, 1 TAB PO BID for 10 Days, #20 TAB Prov:MARLEE BONNER MD 04/02/17 Pantoprazole* (Pantoprazole*) 40 Mg Tablet., 40 MG PO DAILY@06 for 28 Days Prov:OBED BALDERRAMA 08/10/16 Metoprolol Tartrate* (Lopressor*) 25 Mg Tab, 25 MG PO BID for 28 Days, TAB Prov:OBED BALDERRAMA 08/10/16 Losartan Potassium* (Cozaar*) 50 Mg Tablet, 50 MG NGT BID for 28 Days, TAB Prov:OBED BALDERRAMA 08/10/16 Reported Medications Aspirin* (Aspirin* EC) 81 Mg Tablet., 81 MG PO DAILY, TAB 08/07/16 Allergies Allergies: Coded Allergies: No Known Allergy (Unverified , 08/06/16) PMhx/Soc History of Surgery: Yes (Appendectomy ) Anesthesia Reaction: No Hx Neurological Disorder: No Hx Respiratory Disorders: No Hx Cardiac Disorders: Yes (HTN, DMii) Hx Psychiatric Problems: No Hx Miscellaneous Medical Probl: Yes (BILATERAL FOOT PAIN) Hx Alcohol Use: Yes Hx Substance Use: No Hx Tobacco Use: No Smoking Status: Never smoker FmHx Family History: diabetes Physical Exam Vitals Vital Signs Date Temp Pulse Resp B/P (MAP) Pulse Ox O2 O2 Flow FiO2 Time Delivery Rate 03/08/18 96.8 78 16 129/73 99 08:04 (91) Physical Exam Const: No acute distress Head: Atraumatic Eyes: Pupils are equal round reactive to light, there is no evidence of papilledema on funduscopic exam, no conjunctival injection, sclerae nonicteric ENT: Normal External Ears, Nose and Mouth. Neck: Full range of motion. No meningismus. Resp: Clear to auscultation bilaterally Cardio: Regular rate and rhythm, no murmurs Abd: Soft, non tender, non distended. Normal bowel sounds Skin: No petechiae or rashes Back: No midline or flank tenderness Ext: No cyanosis, or edema Neur: Awake and alert Psych: Normal Mood and Affect Result Diagram: 03/08/18 0837 03/08/18 0836 Results 24 hrs Laboratory Tests Test 03/08/18 08:17 03/08/18 08:36 03/08/18 08:37 Bedside Glucose 234 mg/dL Sodium Level 140 mmol/L Potassium Level 4.8 mmol/L Chloride Level 107 mmol/L Carbon Dioxide Level 24 mmol/L Anion Gap 9 Blood Urea Nitrogen 24 mg/dl Creatinine 0.73 mg/dl Est Glomerular Filtrat Rate mL/min > 60 mL/min Glucose Level 235 mg/dl Calcium Level 9.7 mg/dl White Blood Count 6.0 10^3/ul Red Blood Count 4.80 10^6/ul Hemoglobin 14.1 g/dl Hematocrit 42.6 % Mean Corpuscular Volume 88.8 fl Mean Corpuscular Hemoglobin 29.4 pg Mean Corpuscular 33.1 g/dl Hemoglobin Concent Red Cell Distribution Width 12.5 % Platelet Count 245 10^3/UL Mean Platelet Volume 10.7 fl Immature Granulocytes % 0.200 % Neutrophils % 53.7 % Lymphocytes % 34.1 % Monocytes % 9.5 % Eosinophils % 1.8 % Basophils % 0.7 % Nucleated Red Blood Cells % 0.0 /100WBC Immature Granulocytes # 0.010 10^3/ul Neutrophils # 3.2 10^3/ul Lymphocytes # 2.1 10^3/ul Monocytes # 0.6 10^3/ul Eosinophils # 0.1 10^3/ul Basophils # 0.0 10^3/ul Nucleated Red Blood Cells # 0.0 10^3/ul Urine Color YELLOW Urine Clarity CLEAR Urine pH 5.0 Urine Specific [place] 1.024 Urine Ketones NEGATIVE mg/dL Urine Nitrite NEGATIVE mg/dL Urine Bilirubin NEGATIVE mg/dL Urine Urobilinogen NEGATIVE mg/dL Urine Leukocyte Esterase NEGATIVE Pia/ul Urine Microscopic RBC 1 /HPF Urine Microscopic WBC 1 /HPF Urine Mucus FEW /HPF Urine Hemoglobin NEGATIVE mg/dL Urine Glucose 2+ mg/dL Urine Total Protein 1+ mg/dl Procedures/MDM This is a very pleasant 60-year-old male who presents for evaluation of chronic blurry vision, as well as check for evaluation of his diabetes. The patient had no signs or symptoms of DKA, and his labs were not consistent with this either. I suspect his symptoms are most likely related to diabetic retinopathy, I have a very low suspicion for acute angle glaucoma, retinal detachment, or vitreous detachment. He has appearance no new changes in his vision, not experience any floaters. He now is getting access to primary care within the next 2 weeks, thus I offered to restart him on metformin at 1000 mg twice daily which is his prior dose, at discharge the patient with no acute distress. Departure Diagnosis: Primary Impression: Diabetic retinopathy Diabetes mellitus type: type 2 Diabetic retinopathy severity: with unspecified retinopathy severity Diabetes mellitus macular edema: macular edema presence unspecified Laterality: bilateral Qualified Codes: E11.319 - Type 2 diabetes mellitus with unspecified diabetic retinopathy without macular edema Additional Impression: Diabetes Diabetes mellitus type: type 2 Diabetes mellitus shelter insulin use: without shelter use Diabetes mellitus complication status: with ophthalmic complications Diabetes mellitus complication detail: with diabetic retinopathy Diabetic retinopathy severity: with unspecified retinopathy severity Diabetes mellitus macular edema: macular edema presence unspecified Laterality: bilateral Qualified Codes: E11.319 - Type 2 diabetes mellitus with unspecified diabetic retinopathy without macu lar edema Condition: JOSE ALFREDO Zavala MD Mar 08, 2018 10:05
[2018-03-08] MEDS ORDERED: MTF1000T PO (10:08)
== END 2018-03-08 10:54 | disposition home or self-care (01) ==
LOC: E/R 08:03
DX: E11.319 Type 2 diabetes mellitus with unspecified diabetic retinopathy without macular edema (principal); I10 Essential (primary) hypertension; Z79.82 Long term (current) use of aspirin; Z79.84 Long term (current) use of oral hypoglycemic drugs
CPT/HCPCS: 36415; Z7502; 80048; 81001; 82962; 85025; 99283